=== PATIENT | female | born 1975 | race Hispanic/Latino ===

== ENCOUNTER → 2021-11-11 | Outpatient (CLI) | payer OTHER | END | disposition home or self-care (01) | LOC: RAH 11:02 | PROVIDERS: ATTEND Family Medicine | DX: R56.9 Unspecified convulsions (principal); H70.92 Unspecified mastoiditis, left ear; J32.4 Chronic pansinusitis; J33.8 Other polyp of sinus | CPT/HCPCS: 70551 ==